=== PATIENT | male | born 1940 | race Caucasian/White ===

== ENCOUNTER 2017-03-03 10:05 | Inpatient (IN) | payer MEDICARE, OTHER, MEDICAID ==
[~2017-03-03] VITALS: Ht 167.6 cm; Wt 52.6 kg
[2017-03-03] MEDS ORDERED: GLUC1CAP29 PO (10:16)
[2017-03-03] MEDS ORDERED: [UNRECOGNIZED DRUG - OTHER] (10:16)
[2017-03-03] MEDS ORDERED: MULT1TAB11 PO (10:16)
[2017-03-03] MEDS ORDERED: [UNRECOGNIZED DRUG - CODE] PO (10:16)
[2017-03-03 10:54] LABS: BASOPHILS # (AUTO) 0.1 K/uL (0.0-8.0); BASOPHILS % (AUTO) 1.2 % (0.0-2.0); EOSINOPHILS # (AUTO) 0.1 K/uL (0.0-0.7); EOSINOPHILS % (AUTO) 1.4 % (0.0-7.0); HEMATOCRIT 37.6 % (36.7-47.1); LYMPHOCYTES # (AUTO) 1.2 K/uL (20.0-40.0); LYMPHOCYTES % (AUTO) 23.1 % (20.5-51.5); MEAN CORPUSCULAR HEMOGLOBIN 32.3 uug (23.8-33.4); MEAN CORPUSCULAR HGB CONC 35 g/dL (32.5-36.3); MEAN CORPUSCULAR VOLUME 93.4 fL (73.0-96.2); MONOCYTES # (AUTO) 0.4 K/uL (2.0-10.0); NEUTROPHILS # (AUTO) 3.5 K/uL (1.8-8.9); NEUTROPHILS % (AUTO) 66.3 % (38.5-71.5); PLATELET COUNT (AUTO) 188 K/uL (152-348); RED BLOOD CELL COUNT(AUTO) 4.02 MIL/uL (4.06-5.63); WHITE BLOOD COUNT (AUTO) 5.2 K/uL (3.6-10.2)
[2017-03-03 10:59] LABS: ALANINE AMINOTRANSFERASE 20 U/L (16-63); ALKALINE PHOSPHATASE 91 U/L (50-136); ASPARTATE AMINOTRANSFERASE 24 U/L (15-37); BILIRUBIN,DIRECT 0.1 mg/dL (0.0-0.2); BILIRUBIN,TOTAL 0.4 mg/dL (0.2-1.0); CARBON DIOXIDE 32 mmol/L (21-32); CHLORIDE 107 mmol/L (98-107); CREATININE 0.9 mg/dL (0.6-1.3); GLUCOSE 74 mg/dL (74-106); POTASSIUM 3.9 mmol/L (3.5-5.1); TOTAL PROTEIN, SERUM 6.3 g/dL (6.4-8.2); UREA NITROGEN, BLOOD 21 mg/dL (7-18)
[2017-03-03 11:18] LABS: ETHANOL < 3 MG/DL (0-0)
[2017-03-03 11:21] LABS: *BILIRUBIN,URIN NEGATIVE (NEGATIVE); *BLOOD, URINE Trace-intact (NEGATIVE); *CLARITY,URINE CLEAR (CLEAR); *COLOR,URINE YELLOW (YELLOW); *KETONES,URINE NEGATIVE (NEGATIVE); *PROTEIN,URINE NEGATIVE (NEGATIVE); *UROBILINOGEN,URINE 0.2 E.U./dl (NORMAL); LEUKOCYTE ESTERASE ,URINE 1+ (NEGATIVE); NITRITE, URINE NEGATIVE (NEGATIVE); PH,URINE 6.5 (5.0-8.0); UGLUCOSE NEGATIVE (NEGATIVE)
[2017-03-03 11:28] LABS: BACTERIA,URINE FEW /HPF (NONE SEEN); SQUAMOUS EPITHELIAL CELL,UR FEW /HPF (NONE SEEN); WBC,URINE 20-50 /HPF (0-3)
--- NOTE | 2017-03-03 11:31 | NUR ---
pt transfered to [facility] as soon as the room ready. pt at bedside the whole er stay. pt calm and no sign of distress. pt uses own walker when ambulating to bathroom.
[2017-03-03 11:40] VITALS: BP 133/79
[2017-03-03 11:42] LABS: *BARBITURATE, URINE NEGATIVE (NEGATIVE); *CANNABINOID, URINE NEGATIVE (NEGATIVE); *COCCAINE, URINE NEGATIVE (NEGATIVE); *OPIATE, URINE NEGATIVE (NEGATIVE); *PHENCYCLIDINE SCREEN,URINE NEGATIVE (NEGATIVE)
[2017-03-03 11:53] LABS: *AMPHETAMINE, URINE NEGATIVE (NEGATIVE)
[2017-03-03] MEDS ORDERED: MAGNESIUM HYDROXIDE 30 ML LIQUID UDC PO PRN (12:00)
[2017-03-03] MEDS ORDERED: MAG HYDROX/AL HYDROX/SIMETH 30 ML LIQUID UDC PO PRN (12:00)
--- NOTE | 2017-03-03 12:00 | NUR ---
PT IS ADMITTED FROM ER ON VOLUNTARY STATUS. PT WAS BROUGHT IN BY HIS . PT HAS BEEN HAVING INCREASED CONFUSION AND WAS NOT ABLE TO TAKE CARE OF HIMSELF. PT IS ORIENTED TO SELF ONLY, COOPERATIVE. PT NEEDS PROMPTING. PT AMBULATES WITH [facility]. NO DISTRESS NOTED. DR. ARIAS AND DR. MCGEE WERE NOTIFIED.
[2017-03-03 13:59] LABS: ACETAMINOPHEN < 2.0 ug/mL (10-30)
[2017-03-03 15:15] VITALS: BP 137/86
--- NOTE | 2017-03-03 19:30 | NUR ---
pt was placed on a 72 hour hold for being gravely disabled, by Yang Dawkins, of the hospital crisis team, at this time. pt and his spouse were both advised of the hold.
[2017-03-03 19:48] VITALS: BP 119/67
[2017-03-03] MEDS: ZOLPIDEM 5 MG TABLET PO PRN (21:27)
--- NOTE | 2017-03-03 22:30 | NUR ---
received to care, up in leoncio chair, for safety, talking to self, unsteady gait, attempting to get up without assistance, difficult to redirect. PRN chad was given at 2126, and, as of 2229, he remains awake, and restless. snack and diaper change was provided. assisted to bed, but refused to be placed in bed, so he remains in the leoncio chair, appearing slightly restless. will continue to monitor closely.
[2017-03-03] MEDS: LORAZEPAM 0.5 MG TABLET PO PRN (23:10)
--- NOTE | 2017-03-03 23:10 | NUR ---
remains awake, and restless. PRN ativan was given, at this time.
--- NOTE | 2017-03-03 23:45 | NUR ---
appears calmer, now. assisted to bed.
--- NOTE | 2017-03-04 00:10 | NUR ---
appears to be asleep. no distress noted.
--- NOTE | 2017-03-04 06:00 | NUR ---
slept 6.0 hours. assisted with AM care, and shower. currently up in leoncio chair. no distress noted.
[2017-03-04 08:00] VITALS: BP 104/67
[2017-03-04] MEDS: LEVOFLOXACIN 250 MG TABLET PO SCH (09:06)
--- NOTE | 2017-03-04 13:44 | NUR ---
Initial DC Plan: Patient currently lives at home with his Candie [[address] [place] [address]; [phone]]. Patient's believes a facility would be more appropriate for him. SW will follow up with MD, patient, and patient's /DPOA to discuss most appropriate discharge plans. SW will form a safe and proper discharge.
[2017-03-04] MEDS ORDERED: BISACODYL 5 MG TABLET.DR PO PRN (14:00)
--- NOTE | 2017-03-04 15:48 | NUR ---
Firearms Reporting: CLARY submitted Mental Health Report to [facility] on 03/04.
[2017-03-04 19:49] VITALS: BP 110/69
[2017-03-04] MEDS: QUETIAPINE FUMARATE 25 MG TABLET PO SCH (20:01)
[2017-03-04] MEDS: DONEPEZIL 5 MG TABLET PO SCH (20:01)
[2017-03-04] MEDS: ZOLPIDEM 5 MG TABLET PO PRN (21:28)
--- NOTE | 2017-03-04 22:30 | NUR ---
received to care, up in leoncio chair, talking to self. compliant with medications and staff direction. ALAN bonilla was given at 2127, for insomnia. as of 2229, he is now asleep, in bed. no distress noted. will continue to monitor closely.
--- NOTE | 2017-03-05 06:00 | NUR ---
slept 7.25 hours
[2017-03-05 07:30] VITALS: BP 114/74
[2017-03-05] MEDS ORDERED: GLUCOSAMINE PO SCH (09:00)
[2017-03-05] MEDS ORDERED: CHONDROITIN PO SCH (09:00)
[2017-03-05] MEDS: LEVOFLOXACIN 250 MG TABLET PO SCH (09:16)
[2017-03-05] MEDS: MULTIVIT, IRON, MIN NO. 8, FA TABLET PO SCH (09:16)
[2017-03-05 15:00] VITALS: BP 117/70
[2017-03-05 20:03] VITALS: BP 113/76
[2017-03-05] MEDS: DONEPEZIL 5 MG TABLET PO SCH (20:54)
[2017-03-05] MEDS: QUETIAPINE FUMARATE 25 MG TABLET PO SCH (20:54)
[2017-03-06 07:30] VITALS: BP 103/69
[2017-03-06] MEDS ORDERED: PATIENT MAY USE OWN MED- MD OK PO SCH (09:00)
[2017-03-06] MEDS: LEVOFLOXACIN 250 MG TABLET PO SCH (09:27)
[2017-03-06] MEDS: MULTIVIT, IRON, MIN NO. 8, FA TABLET PO SCH (09:27)
[2017-03-06 13:00] VITALS: BP 134/93
[2017-03-06 20:00] VITALS: BP 121/76
[2017-03-06] MEDS: QUETIAPINE FUMARATE 25 MG TABLET PO SCH (20:41)
[2017-03-06] MEDS: DONEPEZIL 5 MG TABLET PO SCH (20:41)
[2017-03-06] MEDS: ZOLPIDEM 5 MG TABLET PO PRN (22:39)
[2017-03-07 07:30] VITALS: BP 126/79
[2017-03-07] MEDS: LEVOFLOXACIN 250 MG TABLET PO SCH (08:36)
[2017-03-07] MEDS: LORAZEPAM 0.5 MG TABLET PO PRN ×2 (08:36→21:44)
[2017-03-07] MEDS: MULTIVIT, IRON, MIN NO. 8, FA TABLET PO SCH (08:36)
[2017-03-07 15:00] VITALS: BP 109/77
[2017-03-07 19:30] VITALS: BP 118/81
[2017-03-07] MEDS: QUETIAPINE FUMARATE 25 MG TABLET PO SCH (20:37)
[2017-03-07] MEDS: DONEPEZIL 5 MG TABLET PO SCH (20:37)
--- NOTE | 2017-03-07 22:43 | NUR ---
Received patient in his bed, He is A/O x1 (name only) confused disorganized, flight of ideas. Unsteady gait. Needs help with ambulation and ADL. Medication compliant at this time. He was noted restless and anxious, he wanted to sit in a leoncio chair. Ativan 0.5mg PO PRN was given at approx 2130 for anxiety. No aggressive Bx. noted at this time.
[2017-03-07] MEDS: ZOLPIDEM 5 MG TABLET PO PRN (23:57)
--- NOTE | 2017-03-08 07:26 | NUR ---
PATIENT SLEPT FOR APPROX 5.30 HRS THROUGH THE NIGHT. HE HAD A SHOWER THIS MORNING.
[2017-03-08 07:30] VITALS: BP 126/83
[2017-03-08] MEDS: LEVOFLOXACIN 250 MG TABLET PO SCH (08:36)
[2017-03-08] MEDS: LORAZEPAM 0.5 MG TABLET PO PRN ×2 (08:36→16:26)
[2017-03-08] MEDS: MULTIVIT, IRON, MIN NO. 8, FA TABLET PO SCH (08:36)
[2017-03-08 17:02] VITALS: BP 103/60
[2017-03-08] MEDS ORDERED: Z GUARD REMEDY PASTE 57 GM TUBE TOP PRN (18:30)
[2017-03-08] MEDS: DONEPEZIL 5 MG TABLET PO SCH (20:17)
[2017-03-08] MEDS: QUETIAPINE FUMARATE 25 MG TABLET PO SCH (20:17)
[2017-03-08] MEDS: Z GUARD REMEDY PASTE 57 GM TUBE TOP SCH (20:18)
[2017-03-08 21:29] VITALS: BP 125/75
--- NOTE | 2017-03-08 22:00 | NUR ---
received to care, up in leoncio chair, talking to self, pleasant upon approach. compliant with medications and staff direction. as of 2199, he is asleep, in bed. no distress noted. will continue to monitor closely.
[2017-03-09 07:30] VITALS: BP 116/68
--- NOTE | 2017-03-09 07:30 | NUR ---
patient noted sitting in geriatric chair in hallway, no complaints of pain at this time, no signs of distress, no behaviors noted at this time
[2017-03-09] MEDS: MULTIVIT, IRON, MIN NO. 8, FA TABLET PO SCH (08:35)
[2017-03-09] MEDS: LEVOFLOXACIN 250 MG TABLET PO SCH (08:35)
[2017-03-09] MEDS: Z GUARD REMEDY PASTE 57 GM TUBE TOP SCH ×2 (08:35→20:09)
[2017-03-09 16:56] VITALS: BP 130/84
[2017-03-09] MEDS: LORAZEPAM 0.5 MG TABLET PO PRN (17:09)
[2017-03-09] MEDS: QUETIAPINE FUMARATE 25 MG TABLET PO SCH (20:08)
[2017-03-09] MEDS: DONEPEZIL 5 MG TABLET PO SCH (20:08)
[2017-03-09 22:04] VITALS: BP 101/70
--- NOTE | 2017-03-10 06:00 | NUR ---
slept 7.0 hours. assisted with AM care, and shower. currently up in leoncio chair. no distress noted.
[2017-03-10 07:30] VITALS: BP 117/79
[2017-03-10] MEDS: LEVOFLOXACIN 250 MG TABLET PO SCH (09:17)
[2017-03-10] MEDS: MULTIVIT, IRON, MIN NO. 8, FA TABLET PO SCH (09:17)
[2017-03-10] MEDS: Z GUARD REMEDY PASTE 57 GM TUBE TOP SCH ×2 (09:17→20:17)
[2017-03-10 16:00] VITALS: BP 134/74
[2017-03-10] MEDS: QUETIAPINE FUMARATE 25 MG TABLET PO SCH (20:17)
[2017-03-10] MEDS: DONEPEZIL 5 MG TABLET PO SCH (20:17)
[2017-03-10 20:34] VITALS: BP 133/86
[2017-03-10] MEDS: ZOLPIDEM 5 MG TABLET PO PRN (21:41)
--- NOTE | 2017-03-10 22:00 | NUR ---
received to care, up in leoncio chair, talking to self, appearing restless and agitated, but pleasant upon approach. compliant with medications and staff direction. PRN ambien was given at 2140, for insomnia. as of 2199, he remains awake, talking to self. he was assisted to the bathroom earlier, and had a large hard stool, so he was given PRN dulcolax, results still pending. will continue to monitor closely.
--- NOTE | 2017-03-10 23:00 | NUR ---
assisted to bed. appears to be asleep. no distress noted.
--- NOTE | 2017-03-10 23:49 | NUR ---
pt is now awake, attempting to get out of bed. placed in leoncio chair, and put at nurses station, for close monitoring.
[2017-03-11] MEDS: LORAZEPAM 0.5 MG TABLET PO PRN (00:34)
--- NOTE | 2017-03-11 00:34 | NUR ---
remains awake, and restless. PRN ativan was given, along with a snack.
--- NOTE | 2017-03-11 06:00 | NUR ---
slept 2.0 hours, total. assisted with am care. no distress noted.
[2017-03-11 07:30] VITALS: BP 136/84
[2017-03-11] MEDS: MULTIVIT, IRON, MIN NO. 8, FA TABLET PO SCH (08:37)
[2017-03-11] MEDS: LEVOFLOXACIN 250 MG TABLET PO SCH (08:37)
[2017-03-11] MEDS: Z GUARD REMEDY PASTE 57 GM TUBE TOP SCH (08:38)
--- NOTE | 2017-03-11 10:12 | NUR ---
DC Note: Patient will be discharged to [facility] [[address] [place] [address]; ] via ambulance at 12:30pm. CLARY spoke with Ema at [facility] to confirm discharge plans. CLARY spoke with patient's /GREER Schreiber [[phone]] who is aware and agreeable to discharge plans. Patient will follow up with Dr. Hills (Psychiatrist) and Dr. Rogers (Ophthalmic Aide).
[2017-03-11] MEDS ORDERED: INFLUENZA VACCINE 2017-2018 0.5 ML DISP.SYRIN IM ONE (13:00)
[2017-03-11] MEDS ORDERED: PNEUMOCOCCAL 23-VAL P-SAC VAC 0.5 ML VIAL IM ONE (13:00)
--- NOTE | 2017-03-11 13:25 | NUR ---
Gps/Machine Sewer- Called [facility] , report given to Nurse Gutierrez. All belongings given back to patient. Flu vaccine and Pneumonia vaccine administered as ordered, ok to give per patient's .
--- NOTE | 2017-03-11 14:06 | NUR ---
Gps/Bench Grinder- Discharged to [facility] via ambulance, in no signs of distress.All belongings was given back to the patient. Patient's Candie was aware and well informed about the discharge.
== END 2017-03-11 14:15 | DRG 885 ==
LOC: ER 10:05 → GPS 11:09
PROVIDERS: ADMIT Psychiatry & Neurology Psychiatry; ATTEND Internal Medicine
DX: F29 Unspecified psychosis not due to a substance or known physiological condition (principal); F02.81 Dementia in other diseases classified elsewhere, unspecified severity, with behavioral disturbance; G30.9 Alzheimer's disease, unspecified; N39.0 Urinary tract infection, site not specified; Z68.1 Body mass index [BMI] 19.9 or less, adult; N40.0 Benign prostatic hyperplasia without lower urinary tract symptoms; Z88.6 Allergy status to analgesic agent; R63.6 Underweight
CPT/HCPCS: 36415; 80307; 85025; 90686; 90732; 93005; 97112; 97116; 97530; A4663; G0480; G0480-TC